=== PATIENT | female | born 1965 | race Caucasian/White ===

== ENCOUNTER 2016-08-12 15:25 | Inpatient (IN) | payer OTHER ==
[~2016-08-12] VITALS: Ht 157.5 cm; Wt 104.2 kg
[~2016-08-12 15:25] MED LIST: EPINEPHrine HCL (1:10,000) 1 MG/10 ML SYRINGE IV ONE; SODIUM BICARBONATE 8.4% INJ 50 MEQ/50 ML SYR IV ONE
[2016-08-12 15:28] VITALS: O2SAT 96
[2016-08-12 15:50] VITALS: O2SAT 98
[2016-08-12] MEDS ORDERED: NOREPINEPHRINE 4 MG/4 ML AMP ONE (15:52)
[2016-08-12 15:57] LABS: AUTOMATED NEUTROPHIL # 3.8 TH/MM3 (1.8-7.7); BASOPHIL # 0.3 TH/MM3 (0-0.2); EOSINOPHIL # 0.1 TH/MM3 (0-0.4); EOSINOPHIL % 0.4 % (0.0-4.0); HEMATOCRIT 31.7 % (35.0-46.0); LYMPH % 81.8 % (9.0-44.0); MEAN CELL VOLUME 85.1 FL (80.0-100.0); MEAN CORPUSCULAR HEMOGLOBIN 26.5 PG (27.0-34.0); MEAN CORPUSCULAR HGB CONC 31.1 % (32.0-36.0); MONO % 3.4 % (0.0-8.0); NEUT % 13.4 % (16.0-70.0); PLATELET COUNT 266 TH/MM3 (150-450); RED BLOOD COUNT 3.73 MIL/MM3 (4.00-5.30); WHITE BLOOD COUNT 28.1 TH/MM3 (4.0-11.0)
[2016-08-12 16:00] LABS: HEMO FLAGS AUTO DIFF; I-STAT POTASSIUM 3.6 MMOL/L (3.5-4.9); I-STAT SODIUM 137 MMOL/L (138-146)
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
[2016-08-12 16:06] LABS: APTT (PATIENT) 30.8 SEC (24.3-30.1); PROTHROMBIN TIME - PATIENT 11.4 SEC (9.8-11.6)
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
[2016-08-12] MEDS ORDERED: EPINEPHrine HCL (1:10,000) 1 MG/10 ML SYRINGE ONE (16:25)
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
[2016-08-12] MEDS ORDERED: DIPHTH/TETANUS/ACEL PERTUSSIS (BOOSTER) 0.5 ML VIAL/PFS IM ONE (16:50)
[2016-08-12 16:52] LABS: BANDS 6 % (0-6); NEUTROPHIL # MANUAL DIFF 2.8 TH/MM3 (1.8-7.7); PLATELET ESTIMATE SMEAR NORMAL (NORMAL); PLATELET MORPHOLOGY NORMAL (NORMAL); POLYS (SEG NEUTROPHILS) 4 % (16-70); SCAN/DIFF FINAL DIFF MANUAL; WBC DIFF SAMPLE 100
[2016-08-12] MEDS ORDERED: IOHEXOL 350 MG/ML 10 ML VIAL (for RAD DIAG) IV ONE (16:54)
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
[2016-08-12] MEDS ORDERED: VASOPRESSIN INJ 20 UNITS/ML VIAL ONE ×2 (17:22→17:24)
[2016-08-12] MEDS ORDERED: CALCIUM CHLORIDE 10% SOLN 1 GRAM/10 ML SYR ONE (17:23)
[2016-08-12 17:27] VITALS: O2SAT 100
[2016-08-12] MEDS ORDERED: CHLORHEXIDINE GLUCONATE 2 % 1 PACK (2 CLOTHS) TOP PRN (17:30)
[2016-08-12] MEDS ORDERED: ENALAPRILAT 1.25 MG/ML VIAL IV PRN (17:30)
[2016-08-12] MEDS ORDERED: ONDANSETRON HCL 4 MG/2 ML VIAL IV PRN (17:30)
[2016-08-12] MEDS ORDERED: MISCELLANEOUS NURSING INFORMATION XX SCH (17:30)
[2016-08-12] MEDS ORDERED: SODIUM CHLORIDE 0.9% FLUSH 5 ML FLUSH IVF PRN (17:30)
[2016-08-12] MEDS ORDERED: MAGNESIUM HYDROXIDE SUSP 30 ML CUP PO PRN (17:30)
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
[2016-08-12] MEDS ORDERED: TERBUTALINE INJ 1 MG/ML AMP SQ PRN (17:45)
[2016-08-12] MEDS ORDERED: RESP: ALBUTEROL 2.5 MG/IPRATROPIUM 0.5 MG NEB (PRN) INH (17:45)
[2016-08-12] MEDS ORDERED: CALCIUM GLUCONATE 10% 1 GM/10 ML VIAL IV PUSH ONE (17:45)
--- NOTE | 2016-08-12 17:45 | RADRPT ---
EXAM DATE/TIME: 08/12/2016 16:49 [place] COMPARISON: CT THORAX W CONTRAST, August 12, 2016, 16:19. CHEST SINGLE AP, August 12, 2016, 15:19. INDICATIONS : Post chest tube placement MEDICAL HISTORY : Unobtainable SURGICAL HISTORY : Unobtainable ENCOUNTER: Initial ACUITY: 1 day PAIN SCORE: Non-responsive. LOCATION: Bilateral chest FINDINGS: Single AP view of the chest. Endotracheal tube is in place with the tip 5 cm above the amos. Bilate ral chest tubes are in place. No evidence of pneumothorax. Trace right pleural effusion. Prominent ri ght perihilar pulmonary contusion. Left subclavian central venous catheter in place with the tip in t he mid SVC. CONCLUSION: Endotracheal tube and bilateral chest tubes. No evidence of pneumothorax. Prominent right perihilar c ontusion. Abdirashid Trejo MD on August 12, 2016 at 17:42 Board Certified Radiologist. This report was verified electronically.
[2016-08-12 18:11] LABS: INDIRECT BILIRUBIN 0.4 MG/DL (0.0-0.8); TOTAL BILIRUBIN ADULT 0.8 MG/DL (0.2-1.0)
[2016-08-12] MEDS ORDERED: ALBUMIN HUMAN 5% 25 GM/500 ML BOTTLE IV ONE (18:15)
[2016-08-12] MEDS ORDERED: 3% SALINE INJ 500 ML IV ONE (18:15)
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
[2016-08-12 18:25] LABS: BICARBONATE 18.9 MEQ/L (21.0-32.0); CALCIUM-PROTEIN CORRECTED 8.2 MG/DL (8.5-10.1); POTASSIUM 3.8 MEQ/L (3.5-5.1); TOTAL BILIRUBIN ADULT 0.8 MG/DL (0.2-1.0)
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
[2016-08-12] MEDS ORDERED: EPINEPHrine (1:1000) INJ 2 MG in DEXTROSE 5% IN WATER INJ 248 ML IV SCH ×2 (18:30)
[2016-08-12] MEDS: NOREPINEPHRINE-DEXTROSE DRIP 250 ML IV SCH (18:34)
[2016-08-12] MEDS: EPINEPHrine (1:1000) INJ 2 MG in DEXTROSE 5% IN WATER INJ 248 ML IV SCH ×4 (18:34→22:00)
--- NOTE | 2016-08-12 18:34 | HHI.PR ---
Immediate Post Op Note Procedure Date: Aug 12, 2016 Pre Op Diagnosis: Bilateral rib fractures, trauma code Post Op Diagnosis: Bilateral rib fractures, trauma code Surgeon: Mickey Alexander [employer] Architect(s): None Procedure: Bilateral chest tube placement Patient was prepped and draped in the standard sterile manner. 3 cm incision was made in the right anterior axillary line fifth intercostal space. Blunt dissection using a Chely clamp was utilized to enter the chest. A finger decompression was performed followed by placement of a 32 Dominican chest tube. There was immediate return of dark venous blood from the incision once the chest cavity was entered. There was very little drainage from the tube therefore was backed out slightly with return of sanguinous drainage. The tube was secured at 14 cm with a 0 silk suture and covered with an occlusive dressing. The patient tolerated procedure well Attention was then directed towards the left chest which was prepped and draped as well. A 3 cm incision was made in the left anterior axillary line fifth intercostal space. Blunt dissection once again using a Chely clamp was utilized to enter the chest followed by finger decompression. A 32 Dominican chest tube was then placed into position and secured at 18 cm with 0 silk suture. A stat portable chest x-ray confirmed adequate placement of the chest tubes with near complete evacuation of the right hemothorax. The patient tolerated procedure well there were no complications Findings: Right-sided hemothorax, left-sided pneumothorax Complications: None Specimen(s) removed: None Estimated blood loss: Minimal, with approximately 300 cc of hemothorax evacuated from the right chest Drains: Chest tube (bilateral 32 Dominican) Patient Condition: Critical Mickey Alexander MD Aug 12, 2016 18:34
[2016-08-12 18:35] LABS: FIBRINOGEN 196 mg/dL (227-377); INTERNATIONAL NORMALIZED RATIO 1.2 RATIO; PROTHROMBIN TIME - PATIENT 13.2 SEC (9.8-11.6)
[2016-08-12] MEDS: SODIUM CHLOR 0.9% 1000 ML INJ 1,000 ML IV SCH (18:36)
--- NOTE | 2016-08-12 18:37 | PD.PROCEDR ---
Central Line Procedure REASON FOR PROCEDURE Central venous access, trauma code requiring aggressive resuscitation and multiple pressors PROCEDURE PERFORMED Central line placement: [ Right subclavian] CONSENT Informed consent for procedure was obtained [this was an emergency procedure ]. The risks and benefits of the procedure were discussed to include but limited to bleeding, clot formation, infection, and even . ANESTHESIA None DESCRIPTION OF THE PROCEDURE The patient was placed in supine, mild Trendelenburg position. The area was exposed and cleansed with ChloraPrep, times two. Large sterile drape was used to cover the patient, with the site exposed, under sterile conditions including cap, face mask, sterile gown, and sterile gloves. On single attempt, the introducer needle was inserted with negative pressure in syringe and venous flash was obtained. The guide wire was then advanced without any restriction and the needle was removed. The dilator was used without any complications. Using Seldinger technique the [ Cordis introducer] catheter was advanced over the guide wire. The guide wire was removed. All ports were aspirated with dark venous blood return and flushed easily with sterile saline. All ports were capped. The central line was secured to the skin with two interrupted 2.0 silk sutures. A double lumen catheter was then threaded through the introducer port of the Cordis and secured with 2-0 silk sutures The area was bandaged with sterile see-through central line bandage. RADIOLOGICAL DATA Portable chest x-ray was ordered to confirm placement COMPLICATIONS: No apparent complications ESTIMATED BLOOD LOSS: Less than 1 cc. Mickey Alexander MD Aug 12, 2016 18:37
[2016-08-12 18:46] LABS: BLOOD GAS BASE EXCESS -11.2 mmol/L (-2-2); BLOOD GAS CARBOXYHEMOGLOBIN 1.7 % (0-4); BLOOD GAS HCO3 16 mmol/L (22-26); BLOOD GAS METHEMOGLOBIN 1.4 % (0-2); BLOOD GAS O2 HGB SATURATION 97 % (90-100); BLOOD GAS OXYGEN CONTENT 8.3 Vol % (12.0-20.0); BLOOD GAS PCO2 45 mmHg (38-42); BLOOD GAS PO2 279 mmHg (61-120); BLOOD GAS TOTAL HGB 5.6 G/DL (12.0-16.0); CRITICAL VALUE YES; OXYGEN DEVICE VENTILATOR; TEMP CORR TO 98.6
[2016-08-12 18:47] VITALS: O2SAT 100
[2016-08-12 18:47] LABS: DRAW SITE ART LINE; FIO2 100 %; STAT NO; VENT SETTINGS 16/500/IT1.0/+5
[2016-08-12] MEDS ORDERED: DEXTROSE 50% IN WATER 50 ML VIAL(D50) IV PUSH PRN (19:00)
[2016-08-12] MEDS ORDERED: VASOPRESSIN INJ 40 UNITS in DEXTROSE 5% IN WATER 100ML INJ 98 ML IV SCH ×2 (19:00)
[2016-08-12] MEDS ORDERED: GLUCAGON 1 MG/ML VIAL OTHER PRN (19:00)
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
[2016-08-12 19:57] VITALS: O2SAT 100
[2016-08-12 20:00] VITALS: BP 170/78; PULSE 108; RESP 20; TEMP 96.1; O2SAT 100
[2016-08-12] MEDS ORDERED: CALCIUM GLUCONATE INJ 1 GM in SODIUM CHLORIDE 0.9% INJ 100 ML IV ONE (20:00)
[2016-08-12] MEDS ORDERED: PANTOPRAZOLE SODIUM 40 MG VIAL IVP SCH (20:00)
[2016-08-12] MEDS: RESP: ALBUTEROL 2.5 MG/IPRATROPIUM 0.5 MG NEB (SCH) INH (20:01)
[2016-08-12] MEDS ORDERED: DOCUSATE SODIUM 100 MG CAP PO SCH (21:00)
[2016-08-12 21:18] LABS: MEAN CORPUSCULAR HGB CONC 29.8 % (32.0-36.0)
[2016-08-13] VITALS (16 sets, daily range): BP systolic 101–123; BP diastolic 48–56; PULSE 102–116; RESP 20–22; TEMP 97.5–99.9; O2SAT 93–100
[2016-08-13] MEDS ORDERED: INSULIN NovoLIN REGULAR SUPPLEMENTAL SCALE SQ SCH
[2016-08-13] MEDS: EPINEPHrine (1:1000) INJ 2 MG in DEXTROSE 5% IN WATER INJ 248 ML IV SCH ×4 (01:01→03:36)
[2016-08-13] MEDS: NOREPINEPHRINE-DEXTROSE DRIP 250 ML IV SCH (01:56)
[2016-08-13] MEDS ORDERED: CHLORHEXIDINE GLUCONATE 2 % 1 PACK (2 CLOTHS) TOP SCH (04:00)
[2016-08-13] MEDS: RESP: ALBUTEROL 2.5 MG/IPRATROPIUM 0.5 MG NEB (SCH) INH ×3 (04:14→15:37)
[2016-08-13 04:41] LABS: BLOOD GAS BASE EXCESS -12.4 mmol/L (-2-2); BLOOD GAS CARBOXYHEMOGLOBIN 2.2 % (0-4); BLOOD GAS HCO3 15 mmol/L (22-26); BLOOD GAS METHEMOGLOBIN 1.3 % (0-2); BLOOD GAS O2 HGB SATURATION 96 % (90-100); BLOOD GAS PCO2 44 mmHg (38-42); BLOOD GAS PO2 170 mmHg (61-120); BLOOD GAS TOTAL HGB 5.6 G/DL (12.0-16.0); TEMP CORR TO 98.6
[2016-08-13 04:42] LABS: CRITICAL VALUE YES; DRAW SITE ALINE; FIO2 100 %; OXYGEN DEVICE VENTILATOR; STAT NO; ULNAR PULSE PRESENT; VENT SETTINGS PRVC/20/500/1.0/+5
--- NOTE | 2016-08-13 05:08 | RADRPT ---
EXAM DATE/TIME: 08/13/2016 03:54 [facility] COMPARISON: CHEST SINGLE AP, August 12, 2016, 16:49. INDICATIONS : Shortness of breath. MEDICAL HISTORY : Unobtainable. SURGICAL HISTORY : Unobtainable. ENCOUNTER: Subsequent ACUITY: 2 days PAIN SCORE: Non-responsive. LOCATION: Bilateral chest FINDINGS: Portable AP view of the chest demonstrates cardiac silhouette size at the upper limits for normal. En dotracheal tube and bilateral chest tubes remain present. Left subclavian central line also remains p resent. No pneumothorax is visualized. There is left lower lobe/retrocardiac airspace consolidation. The right midlung zone airspace consolidation has nearly completely resolved. No pleural effusion is visualized. CONCLUSION: 1. Bilateral chest tubes remain present and no pneumothorax definite is visualized. 2. There is new left lower lobe airspace consolidation and the right midlung zone airspace consolidat ion has nearly completely resolved. Oscar Mccormick MD on August 13, 2016 at 5:05 Board Certified Radiologist. This report was verified electronically.
[2016-08-13 05:12] LABS: AUTOMATED NEUTROPHIL # 23.6 TH/MM3 (1.8-7.7); BASOPHIL % 0.1 % (0.0-2.0); LYMPH % 10.1 % (9.0-44.0); MEAN CELL VOLUME 88.3 FL (80.0-100.0); MEAN CORPUSCULAR HEMOGLOBIN 26.3 PG (27.0-34.0); NEUT % 80.8 % (16.0-70.0); PLATELET COUNT 269 TH/MM3 (150-450); RED BLOOD COUNT 2.09 MIL/MM3 (4.00-5.30); RED CELL DISTRIBUTION WIDTH 19.8 % (11.6-17.2); WHITE BLOOD COUNT 29.3 TH/MM3 (4.0-11.0)
[2016-08-13 05:14] LABS: HEMO FLAGS AUTO DIFF
[2016-08-13 05:17] LABS: HEMATOCRIT 18.4 % (35.0-46.0)
[2016-08-13 05:27] LABS: INTERNATIONAL NORMALIZED RATIO 1.2 RATIO; PROTHROMBIN TIME - PATIENT 13.7 SEC (9.8-11.6)
[2016-08-13] MEDS ORDERED: SODIUM CHLOR 0.9% 250 ML INJ 250 ML IV ONE (05:45)
[2016-08-13 05:46] LABS: BICARBONATE 17.3 MEQ/L (21.0-32.0); CALCIUM-PROTEIN CORRECTED 8.5 MG/DL (8.5-10.1); POTASSIUM 4.5 MEQ/L (3.5-5.1); TOTAL BILIRUBIN ADULT 0.6 MG/DL (0.2-1.0)
[2016-08-13] MEDS ORDERED: INSULIN REGULAR 100 UNITS/100 ML NS ALGORITHM 4 IV SCH ×2 (08:15)
[2016-08-13] MEDS ORDERED: DEXTROSE 50% IN WATER 50 ML VIAL(D50) IV PUSH PRN (08:15)
[2016-08-13] MEDS ORDERED: MISC INFORMATION XX ONE (08:15)
[2016-08-13] MEDS: NOREPINEPHRINE INJ 4 MG in SODIUM CHLOR 0.9% 250 ML INJ 246 ML IV SCH ×4 (09:00→17:24)
[2016-08-13] MEDS ORDERED: NOREPINEPHRINE 4 MG/4 ML AMP ONE (09:19)
[2016-08-13] MEDS ORDERED: VASOPRESSIN INJ 40 UNITS in SODIUM CHLORIDE 0.9% INJ 100 ML IV SCH (09:51)
[2016-08-13 10:10] LABS: BLOOD GAS BASE EXCESS -12.5 mmol/L (-2-2); BLOOD GAS CARBOXYHEMOGLOBIN 1.6 % (0-4); BLOOD GAS HCO3 15 mmol/L (22-26); BLOOD GAS METHEMOGLOBIN 1.2 % (0-2); BLOOD GAS O2 HGB SATURATION 93 % (90-100); BLOOD GAS OXYGEN CONTENT 12.4 Vol % (12.0-20.0); BLOOD GAS PCO2 42 mmHg (38-42); BLOOD GAS PO2 90 mmHg (61-120); BLOOD GAS TOTAL HGB 9.4 G/DL (12.0-16.0); CRITICAL VALUE YES; OXYGEN DEVICE VENTILATOR; TEMP CORR TO 98.6
[2016-08-13 10:11] LABS: DRAW SITE ALINE; FIO2 50 %; STAT NO; VENT SETTINGS SEE COMMENTS
[2016-08-13] MEDS ORDERED: SODIUM BICARBONATE 8.4% INJ 150 MEQ in SODIUM CHLOR 0.9% 1000 ML INJ 850 ML IV SCH (10:15)
[2016-08-13 10:56] LABS: BANDS 23 % (0-6); CORRECTED NUCLEATED RBC 1 /100 WBC (0-0); MYELOCYTES 1 % (0-0); NEUTROPHIL # MANUAL DIFF 24.6 TH/MM3 (1.8-7.7); POLYS (SEG NEUTROPHILS) 60 % (16-70); WBC DIFF SAMPLE 100
[2016-08-13 10:57] LABS: PLATELET ESTIMATE SMEAR NORMAL (NORMAL); PLATELET MORPHOLOGY NORMAL (NORMAL); POLYCHROMASIA 2.7 % (0.0-1.9); SCAN/DIFF FINAL DIFF MANUAL
[2016-08-13] MEDS: EPINEPHrine (1:1000) INJ 2 MG in SODIUM CHLOR 0.9% 250 ML INJ 248 ML IV SCH ×5 (10:59→17:23)
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
[2016-08-13] MEDS ORDERED: POTASSIUM CL 40 MEQ/30 ML LIQ UDC PO/TUBE PRN ×2 (13:30)
[2016-08-13] MEDS ORDERED: POTASSIUM CHLOR 20 MEQ PREMIX 100 ML IV PRN ×2 (13:30)
[2016-08-13] MEDS ORDERED: MAGNESIUM SULFATE INJ 4 GM in SODIUM CHLORIDE 0.9% INJ 92 ML IV PRN (13:30)
[2016-08-13] MEDS ORDERED: POTASSIUM PHOSPHATE INJ 30 MMOL in SODIUM CHLOR 0.9% 250 ML INJ 250 ML IV PRN (13:30)
[2016-08-13] MEDS ORDERED: MAGNESIUM SULFATE INJ 2 GM in SODIUM CHLORIDE 0.9% INJ 96 ML IV PRN (13:30)
[2016-08-13] MEDS ORDERED: POTASSIUM PHOSPHATE MONOBASIC 500 MG TAB PO/TUBE PRN (13:30)
[2016-08-13] MEDS ORDERED: SODIUM PHOSPHATE INJ 30 MMOL in SODIUM CHLOR 0.9% 250 ML INJ 240 ML IV PRN (13:30)
[2016-08-13] MEDS ORDERED: POTASSIUM CHLOR 40 MEQ PREMIX 100 ML IV PRN ×2 (13:30)
[2016-08-13] MEDS ORDERED: MAGNESIUM OXIDE 400 MG TAB PO PRN (13:30)
[2016-08-13] MEDS ORDERED: POTASSIUM PHOSPHATE MONOBASIC 500 MG TAB PO PRN (13:30)
[2016-08-13 13:33] LABS: BLOOD GAS BASE EXCESS -7.7 mmol/L (-2-2); BLOOD GAS CARBOXYHEMOGLOBIN 1.8 % (0-4); BLOOD GAS HCO3 18 mmol/L (22-26); BLOOD GAS O2 HGB SATURATION 96 % (90-100); BLOOD GAS OXYGEN CONTENT 12.3 Vol % (12.0-20.0); BLOOD GAS PCO2 42 mmHg (38-42); BLOOD GAS PO2 113 mmHg (61-120); CRITICAL VALUE YES; DRAW SITE ART LINE; FIO2 50 %; OXYGEN DEVICE VENTILATOR; STAT NO; TEMP CORR TO 98.6; VENT SETTINGS PRVC/AC
[2016-08-13] MEDS: INSULIN REGULAR 100 UNITS/100 ML NS INDIVIDUALIZED ALG IV SCH ×6 (13:37→17:23)
[2016-08-13 13:49] LABS: POTASSIUM 3.5 MEQ/L (3.5-5.1)
[2016-08-13 14:50] LABS: BLOOD GAS BASE EXCESS -7.6 mmol/L (-2-2); BLOOD GAS CARBOXYHEMOGLOBIN 1.4 % (0-4); BLOOD GAS HCO3 19 mmol/L (22-26); BLOOD GAS O2 HGB SATURATION 97 % (90-100); BLOOD GAS OXYGEN CONTENT 12.8 Vol % (12.0-20.0); BLOOD GAS PCO2 52 mmHg (38-42); BLOOD GAS PO2 281 mmHg (61-120); BLOOD GAS TOTAL HGB 8.9 G/DL (12.0-16.0); CRITICAL VALUE YES; OXYGEN DEVICE VENTILATOR; TEMP CORR TO 98.6
[2016-08-13 14:51] LABS: DRAW SITE ART LINE; FIO2 100 %; STAT YES; VENT SETTINGS PRVC/10/520/+5/IT.85
[2016-08-13] MEDS: SODIUM CHLOR 0.9% 1000 ML INJ 1,000 ML IV SCH (17:24)
[2016-08-14] VITALS: BP 104/58; PULSE 106; RESP 22; TEMP 101.1; O2SAT 100
[2016-08-14] MEDS: EPINEPHrine (1:1000) INJ 2 MG in SODIUM CHLOR 0.9% 250 ML INJ 248 ML IV SCH (01:47)
[2016-08-14 04:00] VITALS: BP 114/70; PULSE 114; RESP 22; TEMP 102.6; O2SAT 100
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
--- NOTE | 2016-08-14 14:16 | EKG ---
Date Performed: 08/12/2016 Time Performed: 15:31:49 PTAGE: 89 years EKG: Atrial flutter with possilbly 6:1 block RIGHT BUNDLE BRANCH BLOCK LEFT ANTERIOR FASCICULAR BLOCK LEFT VENTRICULAR HYPERTROPHY AND ST-T CHANGE ABNORMAL ECG NO PREVIOUS TRACING DOCTOR: Emile Minor Interpretating Date/Time 08/14/2016 14:14:49
[2016-08-14] MEDS ORDERED: LIDOCAINE HCL 2% 100 MG/5 ML SYRINGE ONE (20:01)
[2016-08-14] MEDS ORDERED: EPINEPHrine HCL (1:10,000) 1 MG/10 ML SYRINGE ONE (20:01)
[2016-08-14] MEDS ORDERED: ATROPINE SULFATE 1 MG/10 ML SYRINGE ONE (20:01)
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
== END 2016-08-13 14:45 | disposition expired | DRG 551 ==
LOC: NEPI 15:25 → NEDA 16:04 → EDBD 16:04 → N03A 17:10
PROVIDERS: ADMIT Surgery; ATTEND Surgery
PROC: 02HV33Z Insertion of Infusion Device into Superior Vena Cava, Percutaneous Approach (ICD-10-PCS; principal; 2016-08-12)
PROC: 0W9930Z Drainage of Right Pleural Cavity with Drainage Device, Percutaneous Approach (ICD-10-PCS; 2016-08-12)
PROC: 0W9B30Z Drainage of Left Pleural Cavity with Drainage Device, Percutaneous Approach (ICD-10-PCS; 2016-08-12)
PROC: 0T9B70Z Drainage of Bladder with Drainage Device, Via Natural or Artificial Opening (ICD-10-PCS; 2016-08-12)
DX: S12.101A Unspecified nondisplaced fracture of second cervical vertebra, initial encounter for closed fracture (principal); G93.6 Cerebral edema; J96.02 Acute respiratory failure with hypercapnia; J96.01 Acute respiratory failure with hypoxia; I46.9 Cardiac arrest, cause unspecified; S27.1XXA Traumatic hemothorax, initial encounter; G93.1 Anoxic brain damage, not elsewhere classified; J90 Pleural effusion, not elsewhere classified; S27.321A Contusion of lung, unilateral, initial encounter; S22.43XA Multiple fractures of ribs, bilateral, initial encounter for closed fracture; S32.039A Unspecified fracture of third lumbar vertebra, initial encounter for closed fracture; S22.22XA Fracture of body of sternum, initial encounter for closed fracture; S22.029A Unspecified fracture of second thoracic vertebra, initial encounter for closed fracture; S12.300A Unspecified displaced fracture of fourth cervical vertebra, initial encounter for closed fracture; S12.400A Unspecified displaced fracture of fifth cervical vertebra, initial encounter for closed fracture; E11.649 Type 2 diabetes mellitus with hypoglycemia without coma; S42.002A Fracture of unspecified part of left clavicle, initial encounter for closed fracture; S01.01XA Laceration without foreign body of scalp, initial encounter; D64.9 Anemia, unspecified; S42.141A Displaced fracture of glenoid cavity of scapula, right shoulder, initial encounter for closed fracture; V89.2XXA Person injured in unspecified motor-vehicle accident, traffic, initial encounter; E86.1 Hypovolemia; E11.65 Type 2 diabetes mellitus with hyperglycemia; K21.9 Gastro-esophageal reflux disease without esophagitis
CPT/HCPCS: 31500; 32551; 36430; 36556; 36620; 51702; 70450; 71010; 71260; 72125; 72128; 72131; 74177; 78606; 80053; 80076; 80320; 82435; 82565; 82805; 82947; 82948; 83605; 84100; 84132; 84295; 84520; 84703; 85007; 85027; 85379; 85384; 85610; 85730; 86850; 86900; 86901; 86920; 93005; 94002; 94003; 94640; 94664; 96374; 99291; 99292; A9539; C9113; G0390; J0171; J0461; J0610; J1817; J3480; J7030; J7050; J7060; L0150; L0172; P9016; P9045; Q9967